=== PATIENT | female | born 1995 | race Caucasian/White ===

== ENCOUNTER 2017-02-02 18:50 | Inpatient (IN) | payer BC ==
[~2017-02-02] VITALS: Ht 170.2 cm; Wt 64.3 kg
[2017-02-02] MEDS ORDERED: LORAZEPAM 2 MG/ML 1 ML VIAL IV STA (19:53)
[2017-02-02] MEDS ORDERED: LORAZEPAM 2 MG/ML 1 ML VIAL ONE (19:55)
[2017-02-02] MEDS ORDERED: ONDANSETRON INJ 2 MG/ML 2 ML VIAL IV STA (19:56)
[2017-02-02] MEDS ORDERED: OXYC-57 PO (20:08)
[2017-02-02] MEDS ORDERED: BCPILLS PO (20:09)
[2017-02-02 20:11] LABS: BASO % 0.5 %; BASO ABS # 0.03 K/uL (0-0.2); COMPLETE YES; EOS % 7.4 %; HEMATOCRIT 39.5 % (37-47); IG% 0.2 %; LYMPH % 35.4 %; LYMPH ABS # 2.26 K/uL (1.2-3.4); MEAN CELL VOLUME 87.4 fL (80-100); MEAN CORPUSCULAR HEMOGLOBIN 29.4 pg (25-34); MEAN CORPUSCULAR HGB CONC 33.7 g/dl (32-36); MEAN PLATELET VOLUME 11.9 fL (7.4-10.4); MONO % 9.6 %; NEUT % 46.9 %; PLATELET COUNT 320 K/uL (130-400); RED BLOOD COUNT 4.52 M/uL (4.2-5.4); WHITE BLOOD COUNT 6.38 K/uL (4.8-10.8)
[2017-02-02] MEDS ORDERED: SODIUM CHLORIDE 0.9% 1000ML 1,000 ML IV STA (20:12)
[2017-02-02 20:18] LABS: BUN/CREATININE RATIO 10.2 (10-20); CALCIUM 9.2 mg/dl (8.5-10.1); CREATININE 0.84 mg/dl (0.60-1.20); POTASSIUM 3.6 mmol/L (3.5-5.1)
[2017-02-02] MEDS ORDERED: MoRPHine SULFATE 4 MG/ML 1 ML CARP\\VIAL ONE (20:19)
[2017-02-02 20:22] LABS: PARTIAL THROMBOPLASTIN RATIO 1.2; PROTHROMBIN TIME (PATIENT) 10.4 SECONDS (9.0-12.0)
[2017-02-02] MEDS ORDERED: SILVER NITR/POTASSIUM NITRATE APPLICATOR ONE ×5 (20:32→21:24)
[2017-02-02] MEDS ORDERED: BENZOCAIN/TETRACA/BUTAM SPRAY 200 APPLN/20 GM SPRY ONE ×3 (20:34→20:36)
[2017-02-02] MEDS ORDERED: MoRPHine SULFATE 4 MG/ML 1 ML CARP\\VIAL IV STA (20:50)
[2017-02-02] MEDS ORDERED: LIDOCAINE/EPINEPHRINE 1% 20 ML VIAL ONE ×2 (21:49→23:24)
[2017-02-02] MEDS ORDERED: ONDANSETRON INJ 2 MG/ML 2 ML VIAL IV PRN (22:00)
[2017-02-02] MEDS ORDERED: ATROPINE SULFATE 0.1 MG/ML 5ML SYR IV PRN (22:00)
[2017-02-02] MEDS ORDERED: EpHEDrine SULFATE INJ 50 MG/ML AMP IV PRN (22:00)
[2017-02-02] MEDS ORDERED: FENTANYL CITRATE INJ 50 MCG/1 ML 2 ML VIAL IV PRN (22:00)
[2017-02-02] MEDS ORDERED: PROMETHAZINE HCL INJ 6.25 MG in SODIUM CHLORIDE 0.9% 50ML 50 ML IV PRN (22:00)
[2017-02-02] MEDS ORDERED: PROPOFOL IV EMULSION 10 MG/ML 20 ML VIAL IV ONE ×2 (22:05→23:03)
[2017-02-02] MEDS ORDERED: FENTANYL CITRATE INJ 50 MCG/1 ML 2 ML VIAL ONE (22:05)
[2017-02-02] MEDS ORDERED: SUCCINYLCHOLINE CHLORIDE 20 MG/ML 10 ML VIAL IV ONE (22:05)
[2017-02-02] MEDS ORDERED: LIDOCAINE HCL 2% 2 ML VIAL (20MG/ML) ONE (22:05)
[2017-02-02] MEDS ORDERED: ONDANSETRON INJ 2 MG/ML 2 ML VIAL ONE (22:06)
[2017-02-02] MEDS ORDERED: DEXAMETHASONE SOD INJ 4 MG/ML VIAL ONE (22:06)
[2017-02-02] MEDS ORDERED: OXYMETAZOLINE HCL 0.05% NA SPR 15 ML BTL ONE (22:51)
--- NOTE | 2017-02-02 23:06 | ENT CONSULTATION ---
DATE OF CONSULTATION: 02/02/2017 INDICATION: Post-tonsillectomy hemorrhage. PERSON REQUESTING CONSULTATION: Kaitlin Cooper PA-C HISTORY OF PRESENT ILLNESS: This is a 21-year-old woman, who underwent tonsillectomy 1 week ago at [facility]. She did well until earlier today, when she experienced some post-tonsillectomy bleeding. She had been taken Percocet for pain and denied any use of Advil or aspirin. She presented to the Emergency Department in the early evening of 02/02/17, and I was called about 8:00 PM. I arrived in the Emergency Department about 8:15 PM. PAST MEDICAL HISTORY: Medical history includes asthma. Surgery includes tonsillectomy. ALLERGIES: SHE HAS AN ALLERGY TO CLINDAMYCIN. PHYSICAL EXAMINATION: I examined her in the Emergency Department, and her bleeding was occurring diffusely from both tonsillar fossae. It was much more extensive on the left than the right. Although the oozing involved the superior and inferior aspects of both tonsillar fossae, it was most brisk from the inferior portion of her tonsillar fossa. I spent about an hour, trying to control bleeding, using gargles with iced saline and hydrogen peroxide, which was then suctioned away along with clot to better localize the sites of bleeding. Using a surgical headlight wiht surgical loupes, silver nitrate was applied to the bleeding sites. Unfortunately, I was unable to stop the bleeding, and given the inability to control the hemorrhage in the Emergency Department, she was taken to the operating room for control of post-tonsillectomy hemorrhage under general anesthesia. I provided a full informed consent myself and answered her questions. AWILDA
--- NOTE | 2017-02-02 23:50 | EMERGENCY ROOM VISIT NOTE ---
History First contact with patient: 19:04 Chief Complaint: THROAT PAIN/INJURY Stated Complaint: THROAT BLEEDING POST TONSILECTOMY History of Present Illness The patient is a 21 year old female who presents to the Emergency Room with complaints of bleeding 1 week status post tonsillectomy. The patient states that she had a tonsillectomy performed 1 week ago at [facility] due to chronic infections and breathing difficulties. She states that she has had some pain but has otherwise been healing well. This morning, approximately 8 hours prior to arrival, she developed a small amount of bleeding. She states the bleeding has increased in the past one hour, prompting her to come here. She denies any history or family history of bleeding or clotting disorders. She denies any difficulty breathing. She denies any lightheadedness, syncope or dizziness. Review of Systems A complete 10 point review of systems was reviewed with the patient with pertinent positives and negatives as per history of present illness. All else were negative. Past Medical/Surgical History Medical Problems: (1) Post tonsillectomy secondary hemorrhage Social History Smoking Status: Never Smoker Current/Historical Medications Scheduled Control Pills ( Control Pills), 1 TAB PO HS Scheduled PRN Oxycodone/Acetaminophen 5MG/325MG (Percocet 5MG/325MG), 2 TABS PO Q4H PRN for Pain Allergies Coded Allergies: Clindamycin (Unverified Allergy, Unknown, SWELLING, 02/02/17) Erythromycin (Unverified Allergy, Unknown, SWELLING, 02/02/17) Physical Exam Vital Signs Date Time Temp Pulse Resp B/P (MAP) Pulse Ox O2 Delivery O2 Flow Rate FiO2 02/02/17 22:37 36.6 104 16 124/80 98 02/02/17 21:53 104 16 124/80 98 Room Air 02/02/17 20:17 98 Room Air 02/02/17 20:14 107 16 125/82 98 Room Air 02/02/17 20:06 101 02/02/17 19:57 116 16 141/107 97 Room Air 02/02/17 19:40 97 Room Air 02/02/17 19:00 36.6 98 18 127/83 97 Room Air Pain Rating (0-10): 4.0 Physical Exam VITALS: Vitals are noted on the nurse's note and reviewed by myself. Vital signs stable. GENERAL: This is a 21-year-old female, tearful, anxious appearing, spitting blood into an emesis bag, well-developed well-nourished. MOUTH: There are whitish scabs over bilateral tonsillar pillars. There is blood actively oozing from the left tonsillar pillar. HEART: Regular rate and rhythm without murmurs gallops or rubs. LUNGS: Clear to auscultation bilaterally without wheezes, rales or rhonchi. NEURO: Patient was alert and oriented to person place and time. Medical Decision & Procedures Laboratory Results 02/02/17 19:15 Red Blood Count 4.52, Mean Corpuscular Volume 87.4, Mean Corpuscular Hemoglobin 29.4, Mean Corpuscular Hemoglobin Concent 33.7, Mean Platelet Volume 11.9, Neutrophils (%) (Auto) 46.9, Lymphocytes (%) (Auto) 35.4, Monocytes (%) (Auto) 9.6, Eosinophils (%) (Auto) 7.4, Basophils (%) (Auto) 0.5, Neutrophils # (Auto) 3.00, Lymphocytes # (Auto) 2.26, Monocytes # (Auto) 0.61, Eosinophils # (Auto) 0.47, Basophils # (Auto) 0.03 02/02/17 19:15 Test 02/02/17 19:15 White Blood Count 6.38 K/uL (4.8-10.8) Red Blood Count 4.52 M/uL (4.2-5.4) Hemoglobin 13.3 g/dL (12.0-16.0) Hematocrit 39.5 % (37-47) Mean Corpuscular Volume 87.4 fL (80-100) Mean Corpuscular Hemoglobin 29.4 pg (25-34) Mean Corpuscular Hemoglobin Concent 33.7 g/dl (32-36) Platelet Count 320 K/uL (130-400) Mean Platelet Volume 11.9 fL (7.4-10.4) Neutrophils (%) (Auto) 46.9 % Lymphocytes (%) (Auto) 35.4 % Monocytes (%) (Auto) 9.6 % Eosinophils (%) (Auto) 7.4 % Basophils (%) (Auto) 0.5 % Neutrophils # (Auto) 3.00 K/uL (1.4-6.5) Lymphocytes # (Auto) 2.26 K/uL (1.2-3.4) Monocytes # (Auto) 0.61 K/uL (0.11-0.59) Eosinophils # (Auto) 0.47 K/uL (0-0.5) Basophils # (Auto) 0.03 K/uL (0-0.2) RDW Standard Deviation 43.6 fL (36.4-46.3) RDW Coefficient of Variation 13.6 % (11.5-14.5) Immature Granulocyte % (Auto) 0.2 % Immature Granulocyte # (Auto) 0.01 K/uL (0.00-0.02) Prothrombin Time 10.4 SECONDS (9.0-12.0) Prothromb Time International Ratio 1.0 (0.9-1.1) Activated Partial Thromboplast Time 30.3 SECONDS (21.0-31.0) Partial Thromboplastin Ratio 1.2 Anion Gap 6.0 mmol/L (3-11) Est Creatinine Clear Calc Drug Dose 102.4 ml/min Estimated GFR () 116.0 Estimated GFR (Non- 100.1 BUN/Creatinine Ratio 10.2 (10-20) Calcium Level 9.2 mg/dl (8.5-10.1) Medications Administered Medications (Trade) Dose Ordered Sig/Keith Route Start Time Stop Time Status Last Admin Dose Admin Lorazepam (Ativan Inj) 0.5 mg NOW STAT IV 02/02/17 19:53 02/02/17 19:55 DC 02/02/17 19:57 0.5 MG Ondansetron HCl (Zofran Inj) 4 mg NOW STAT IV 02/02/17 19:56 02/02/17 19:58 DC 02/02/17 20:02 4 MG Sodium Chloride 1,000 ml @ 999 mls/hr Q1H1M STAT IV 02/02/17 20:12 02/02/17 21:12 DC 02/02/17 20:12 999 MLS/HR Morphine Sulfate (MoRPHine SULFATE INJ) 4 mg STK-MED ONCE .ROUTE 02/02/17 20:19 02/02/17 20:20 DC 02/02/17 20:20 4 MG Oxymetazoline HCl (Afrin 0.05% Nasal [place]) 75 sprays STK-MED ONCE .ROUTE 02/02/17 22:51 6/13/17 22:52 DC 02/02/17 22:51 75 SPRAYS ED Course The patient was evaluated as above. Labs were drawn and IV access was obtained. She was given a 1 L normal saline bolus. Patient was given iced saline and hydrogen peroxide in a 5:1 solution and gargle this for approximately 5 minutes. Her bleeding seemed to slow slightly, but did continue. Dr. Contreras of ENT was consulted. He will evaluate the patient in the emergency department. The patient requested that we update the parents. I called both her mother and father and updated them on the patient's condition. I was asked by the nurse to return to the patient's room, as her bleeding has increased. The patient is still bleeding a moderate amount from the left tonsillar pillar. She was asked to continue to gargle the iced saline solution. She was medicated with 4 mg Zofran, as she was gagging and 0.[address] anxiety. [address] Contreras evaluated the patient. She was given a dose of IV morphine at his request. He attempted to stop the bleeding but unfortunately was unable to. The patient was taken to the OR for surgical management. Dr. Contreras called and asked that I speak with the hospitalist service regarding the patient. I spoke with Dr. Street, who agreed to evaluate the patient as well. Medical Decision Differential diagnosis includes post-tonsillectomy hemorrhage, infection, bleeding disorder, among others. The patient is a 21-year-old female who presents today complaining of bleeding one week status post tonsillectomy. On evaluation, the patient has a moderate amount of blood oozing from the left tonsillar pillar. An attempt was made to stop the bleeding with iced saline and hydrogen peroxide. This was not successful and ENT was consulted. Please see Dr. Contreras's dictation for further details. He did attempt to cauterize the tonsillar pillars in the emergency department but was unable. The patient was subsequently taken to the OR for surgical management. The [facility] hospitalist service was consulted by myself and Dr. Contreras's request to evaluate the patient as well. She remained hemodynamically stable under my care in the emergency department. Medication reconciliation: I attest that I have personally reviewed the patient 's current medication list. Blood pressure screening: Patient was found to have normal blood pressure on screening and does not require follow-up. Impression Primary Impression: Post-tonsillectomy hemorrhage Departure Information Referrals Krystle Abdul MD (PCP) Patient Instructions My [facility]
[2017-02-03] VITALS (15 sets, daily range): BP systolic 100–139; BP diastolic 52–113; PULSE 70–141; TEMP 36.2–37.5; O2SAT 95–100; Ht 170.2 cm; Wt 64.3 kg
[2017-02-03] MEDS ORDERED: ACETAMINOPHEN IV 1,000 MG in EMPTY BAG 0 ML IV SCH
[2017-02-03] MEDS: SODIUM CHLORIDE 0.9% 1000ML 1,000 ML IV SCH ×3 (00:01→19:35)
[2017-02-03] MEDS ORDERED: LORAZEPAM 2 MG/ML 1 ML VIAL ONE (00:09)
[2017-02-03] MEDS ORDERED: NURSING DECISION MEDICATION ORDER ONE (00:15)
[2017-02-03] MEDS ORDERED: ACETAMINOPHEN IV 1000MG/100ML IV STA (00:27)
[2017-02-03] MEDS ORDERED: LORAZEPAM 2 MG/ML 1 ML VIAL IV STA (00:29)
--- NOTE | 2017-02-03 00:31 | Anesthesiology Progress Note ---
Anesthesia Post Op Note Date & Time Feb 03, 2017 at 00:18 Vital Signs Pain Intensity: 8.0 Vital Signs Past 12 Hours Date Time Temp Pulse Resp B/P (MAP) Pulse Ox O2 Delivery O2 Flow Rate FiO2 02/02/17 22:37 36.6 104 16 124/80 98 02/02/17 21:53 104 16 124/80 98 Room Air 02/02/17 20:17 98 Room Air 02/02/17 20:14 107 16 125/82 98 Room Air 02/02/17 20:06 101 02/02/17 19:57 116 16 141/107 97 Room Air 02/02/17 19:40 97 Room Air 02/02/17 19:00 36.6 98 18 127/83 97 Room Air Notes Mental Status: alert / awake / arousable, participated in evaluation Pt Amnestic to Procedure: Yes Nausea / Vomiting: adequately controlled Pain: adequately controlled Airway Patency, RR, SpO2: stable & adequate BP & HR: stable & adequate Hydration State: stable & adequate Anesthetic Complications: no major complications apparent Airway management note: Patient well preoxygenated with 2 yankauer suctions available at head of bed. RSI with performed by myself and gentle laryngoscopy with Mil3 blade revealed a recently bled L tonsillar bed, clear cords, and no significant blood in posterior pharynx. ETCO2 and bilateral breath sounds were confirmed. ETT was taped to oscar 22cm at lip for surgeon and bed was turned 90 degrees. During positioning of head and placement of tongue blade, the ETT became dislodged and blood was noted in throat and ETT. As surgeon already at the head of bed, the throat was suctioned, irrigated, and the patient was bag mask ventilated and reintubated by the surgeon. She had no prolonged desaturation and end tidal CO2 and bilateral breath sounds were confirmed. The case proceeded uneventfully and the patient was extubated on emergence. She did have some emesis of clotted blood in recovery which was followed closely by the surgeon and did resolve. Given the possibility of rebleed requiring reexploration or airway management, the decision was made between myself and the surgeon to observe her in the ICU overnight. I have spoken to the computational physicist and the hospitalist who will assume care of the patient.
--- NOTE | 2017-02-03 00:48 | [facility] Post Operative Brief Note ---
Immediate Operative Summary Operative Date Feb 03, 2017. Pre-Operative Diagnosis Post-tonsillectomy hemorrhage Post-Operative Diagnosis Post-tonsillectomy hemorrhage Procedure(s) Performed Control of Post-Tonsillectomy Hemorrhage Surgeon Dr. Bryan Contreras Header Machine Operator Surgeon(s) None Estimated Blood Loss 75ml Findings Diffuse oozing from both tonsillar fossa. Fluids (cc crystalloids) 1200 ml Specimens No Specimens Anesthesia General via ETT Complication(s) None Disposition Surgical ICU
[2017-02-03] MEDS ORDERED: OXYMETAZOLINE HCL 0.05% NA SPR 15 ML BTL ONE ×2 (01:12→03:08)
[2017-02-03] MEDS ORDERED: COLLAGEN HEMOSTAT ABSORBABLE ONE (01:12)
[2017-02-03 01:16] LABS: HEMATOCRIT 32.9 % (37-47)
[2017-02-03] MEDS ORDERED: FENTANYL CITRATE INJ 50 MCG/1 ML 2 ML VIAL ONE (01:17)
[2017-02-03] MEDS ORDERED: PROPOFOL IV EMULSION 10 MG/ML 100 ML VIAL IV ONE (01:29)
--- NOTE | 2017-02-03 01:45 | EMERGENCY ROOM VISIT NOTE ---
ED Visit Note First contact with patient: 19:04 I have personally evaluated this patient examined her and reviewed the pertinent labs and data. I have discussed the case with Kaitlin Batista, the physician assisted living assistant and agree with the plan. Please refer to the PA note. This patient comes in after having post tonsillar bleed about a week after her tonsils were removed. Initially she has small ooze. As per protocol we did have her use cold salt water established an IV and hydrated her. Blood work was obtained. She started bleeding more briskly and we consulted the your nose and throat in the meantime we did type and cross her for blood . she was given Ativan as she was anxious and Zofran for nausea. Dr. Cleaning did promptly come in and see her and is going to take her to the operating room for controlling of her bleeding.
[2017-02-03 01:59] LABS: BUN/CREATININE RATIO 17.6 (10-20); CALCIUM 7.9 mg/dl (8.5-10.1); CREATININE 0.74 mg/dl (0.60-1.20)
[2017-02-03] MEDS ORDERED: PROPOFOL IV EMULSION 10 MG/ML 100 ML VIAL IV PRN (02:00)
[2017-02-03] MEDS ORDERED: NURSING VERBAL MED ORDER ONE (02:00)
[2017-02-03] MEDS ORDERED: GELATIN SPONGE SZ 100 ONE (02:25)
[2017-02-03] MEDS ORDERED: TISSEEL FIBRIN SEALANT 4ML TOP ONE (02:27)
[2017-02-03] MEDS ORDERED: SUCCINYLCHOLINE CHLORIDE 20 MG/ML 10 ML VIAL IV ONE (02:47)
[2017-02-03] MEDS ORDERED: LIDOCAINE HCL 2% 2 ML VIAL (20MG/ML) ONE ×2 (02:47)
[2017-02-03] MEDS ORDERED: PROPOFOL IV EMULSION 10 MG/ML 20 ML VIAL IV ONE (02:47)
--- NOTE | 2017-02-03 03:23 | Anesthesiology Progress Note ---
Anesthesia Post Op Note Date & Time Feb 03, 2017 at 03:22 Vital Signs Pain Intensity: 7.0 Vital Signs Past 12 Hours Date Time Temp Pulse Resp B/P (MAP) Pulse Ox O2 Delivery O2 Flow Rate FiO2 02/03/17 03:09 40 02/03/17 01:15 36.5 141 20 133/91 (105) 96 Room Air 02/03/17 01:00 36.5 141 20 139/113 (122) 96 Room Air 02/03/17 01:00 36.5 107 20 125/73 96 Room Air 02/03/17 00:30 107 20 125/73 96 02/03/17 00:20 111 22 126/77 97 02/03/17 00:15 108 22 131/90 96 02/03/17 00:10 114 20 133/89 99 02/03/17 00:05 123 20 137/91 99 02/03/17 00:01 142 20 142/89 98 02/02/17 23:55 141 26 140/92 96 02/02/17 23:44 147 24 162/111 100 02/02/17 22:37 36.6 104 16 124/80 98 02/02/17 21:53 104 16 124/80 98 Room Air 02/02/17 20:17 98 Room Air 02/02/17 20:14 107 16 125/82 98 Room Air 02/02/17 20:06 101 02/02/17 19:57 116 16 141/107 97 Room Air 02/02/17 19:40 97 Room Air 02/02/17 19:00 36.6 98 18 127/83 97 Room Air Notes Mental Status: alert / awake / arousable, participated in evaluation Pt Amnestic to Procedure: Yes Nausea / Vomiting: adequately controlled Pain: adequately controlled Airway Patency, RR, SpO2: stable & adequate BP & HR: stable & adequate Hydration State: stable & adequate Anesthetic Complications: no major complications apparent Patient remains sedated and intubated and pharynx packed as planned preoperatively. Initial plan for vent orders and sedation is underway. Hospitalist team is aware of plan.
[2017-02-03] MEDS ORDERED: ATROPINE SULFATE 0.1 MG/ML 5ML SYR IV PRN (03:30)
[2017-02-03] MEDS ORDERED: EpHEDrine SULFATE INJ 50 MG/ML AMP IV PRN (03:30)
[2017-02-03 03:45] LABS: COMPLETE YES; EOS % 0.1 %; HEMATOCRIT 38.2 % (37-47); IG% 0.2 %; LYMPH % 5.9 %; LYMPH ABS # 0.63 K/uL (1.2-3.4); MEAN CELL VOLUME 86.6 fL (80-100); MEAN CORPUSCULAR HEMOGLOBIN 28.8 pg (25-34); MEAN CORPUSCULAR HGB CONC 33.2 g/dl (32-36); MEAN PLATELET VOLUME 11.2 fL (7.4-10.4); MONO % 0.4 %; NEUT % 93.4 %; PLATELET COUNT 278 K/uL (130-400); RED BLOOD COUNT 4.41 M/uL (4.2-5.4); WHITE BLOOD COUNT 10.76 K/uL (4.8-10.8)
[2017-02-03 03:53] LABS: PROTHROMBIN TIME (PATIENT) 10.8 SECONDS (9.0-12.0)
[2017-02-03 04:05] LABS: PFT COL EPI 120 SECONDS (80-184)
--- NOTE | 2017-02-03 05:28 | OPERATIVE REPORT ---
DATE OF OPERATION: 02/02/2017 ADDENDUM: Please include this information in the operative note I just completed a few minutes ago: BLOOD LOSS: 450 mL. IV FLUIDS: 1200 mL of crystalloid. I attest to the content of the Intraoperative Record and any orders documented therein. Any exceptions are noted below. NGHIAD
--- NOTE | 2017-02-03 05:45 | History and Physical ---
History & Physical Date & Time of Service: Feb 03, 2017 at 05:36 Chief Complaint: Post Tonsillectomy Secondary Hemorrhage Primary Care Physician: Krystle Abdul MD History of Present Illness Source: patient 21-year-old female presented to the ER with complaints of bleeding from tonsillectomy site which started today. Tonsillectomy was performed about a week ago at [facility] and she did well postoperatively until this evening. Denied using Advil or aspirin. Denied any bleeding or clotting disorders, denies difficulty breathing, lightheadedness or dizziness or syncope Social History Smoking Status: Never Smoker Allergies Coded Allergies: Clindamycin (Unverified Allergy, Unknown, SWELLING, 02/02/17) Erythromycin (Unverified Allergy, Unknown, SWELLING, 02/02/17) Home Medications Scheduled Control Pills ( Control Pills), 1 TAB PO HS Scheduled PRN Oxycodone/Acetaminophen 5MG/325MG (Percocet 5MG/325MG), 2 TABLETS PO Q4H PRN for Pain Review of Systems Constitutional: No fever, No chills Eyes: No worsening of vision ENT: + problem reported (bleeding from tonsillectomy site), No hearing loss Respiratory: No cough, No shortness of breath Cardiovascular: No chest pain Abdomen: No pain, No nausea, No diarrhea Genitourinary - Female: No dysuria Psychiatric: + anxiety, No depression symptoms Endocrine: No fatigue Physical Exam Vital Signs Date Time Temp Pulse Resp B/P (MAP) Pulse Ox O2 Delivery O2 Flow Rate FiO2 02/03/17 04:52 30 02/03/17 04:00 36.5 93 20 125/85 (98) 100 Room Air 02/03/17 03:45 100 Room Air 30 02/03/17 03:45 30 02/03/17 03:45 36.2 97 18 126/85 (99) 100 Room Air 02/03/17 03:40 36.2 95 18 127/86 (100) 95 Room Air 02/03/17 03:35 36 90 130/90 100 Mechanical Ventilator 30 02/03/17 03:30 90 121/81 100 Mechanical Ventilator 02/03/17 03:25 76 113/79 100 Mechanical Ventilator 30 02/03/17 03:20 88 114/79 100 Mechanical Ventilator 30 02/03/17 03:15 101 116/80 100 Mechanical Ventilator 30 02/03/17 03:10 74 128/92 100 Mechanical Ventilator 30 02/03/17 03:09 40 02/03/17 03:03 36 105/66 (79) 100 Mechanical Ventilator 30 02/03/17 01:15 36.5 141 20 133/91 (105) 96 Room Air 02/03/17 01:00 36.5 141 20 139/113 (122) 96 Room Air 02/03/17 01:00 36.5 107 20 125/73 96 Room Air 02/03/17 00:30 107 20 125/73 96 02/03/17 00:20 111 22 126/77 97 02/03/17 00:15 108 22 131/90 96 02/03/17 00:10 114 20 133/89 99 02/03/17 00:05 123 20 137/91 99 02/03/17 00:01 142 20 142/89 98 02/02/17 23:55 141 26 140/92 96 02/02/17 23:44 147 24 162/111 100 02/02/17 22:37 36.6 104 16 124/80 98 02/02/17 21:53 104 16 124/80 98 Room Air 02/02/17 20:17 98 Room Air 02/02/17 20:14 107 16 125/82 98 Room Air 02/02/17 20:06 101 02/02/17 19:57 116 16 141/107 97 Room Air 02/02/17 19:40 97 Room Air 02/02/17 19:00 36.6 98 18 127/83 97 Room Air General Appearance: + mild distress Head: normocephalic ENT: + pertinent finding (whitish-appearing scabs on the tonsillar pillars with active bleeding especially from left) Neck: supple Respiratory/Chest: chest non-tender, lungs clear, normal breath sounds Cardiovascular: regular rate, rhythm Abdomen/GI: normal bowel sounds, non tender, soft Extremities/Musculoskelatal: no pedal edema Neurologic/Psych: alert, oriented x 3, + pertinent finding (anxious) Skin: normal color Diagnostics Laboratory Results Results Past 24 Hours Test 02/02/17 19:15 02/03/17 01:05 02/03/17 03:40 Range/Units White Blood Count 6.38 10.76 4.8-10.8 K/uL Red Blood Count 4.52 4.41 4.2-5.4 M/uL Hemoglobin 13.3 10.5 12.7 12.0-16.0 g/dL Hematocrit 39.5 32.9 38.2 37-47 % Mean Corpuscular Volume 87.4 86.6 80-100 fL Mean Corpuscular Hemoglobin 29.4 28.8 25-34 pg Mean Corpuscular Hemoglobin Concent 33.7 33.2 32-36 g/dl Platelet Count 320 278 130-400 K/uL Mean Platelet Volume 11.9 11.2 7.4-10.4 fL Neutrophils (%) (Auto) 46.9 93.4 % Lymphocytes (%) (Auto) 35.4 5.9 % Monocytes (%) (Auto) 9.6 0.4 % Eosinophils (%) (Auto) 7.4 0.1 % Basophils (%) (Auto) 0.5 0.0 % Neutrophils # (Auto) 3.00 10.06 1.4-6.5 K/uL Lymphocytes # (Auto) 2.26 0.63 1.2-3.4 K/uL Monocytes # (Auto) 0.61 0.04 0.11-0.59 K/uL Eosinophils # (Auto) 0.47 0.01 0-0.5 K/uL Basophils # (Auto) 0.03 0.00 0-0.2 K/uL RDW Standard Deviation 43.6 42.2 36.4-46.3 fL RDW Coefficient of Variation 13.6 13.1 11.5-14.5 % Immature Granulocyte % (Auto) 0.2 0.2 % Immature Granulocyte # (Auto) 0.01 0.02 0.00-0.02 K/uL Prothrombin Time 10.4 10.8 9.0-12.0 SECONDS Prothromb Time International Ratio 1.0 1.0 0.9-1.1 Activated Partial Thromboplast Time 30.3 21.0-31.0 SECONDS Partial Thromboplastin Ratio 1.2 Sodium Level 136 140 136-145 mmol/L Potassium Level 3.6 4.0 3.5-5.1 mmol/L Chloride Level 99 105 98-107 mmol/L Carbon Dioxide Level 31 24 21-32 mmol/L Anion Gap 6.0 11.0 3-11 mmol/L Blood Urea Nitrogen 9 13 7-18 mg/dl Creatinine 0.84 0.74 0.60-1.20 mg/dl Est Creatinine Clear Calc Drug Dose 102.4 116.2 ml/min Estimated GFR () 116.0 135.2 Estimated GFR (Non- 100.1 116.6 BUN/Creatinine Ratio 10.2 17.6 10-20 Random Glucose 83 146 70-99 mg/dl Calcium Level 9.2 7.9 8.5-10.1 mg/dl Platelet Func Collagen/Epinephrine 120 80-184 SECONDS Impression Assessment and Plan 21-year-old female status post tonsillectomy about a week ago at [facility] presented with bleeding that started this morning. ENT was consulted by ER and after several attempts to control bleeding in the ER she was taken to the OR for controlling her bleeding. Post tonsillectomy secondary hemorrhage: - Patient taken to the OR by ENT after unsuccessful attempts to control bleeding in the ER - Continue IV fluids - Pain control with morphine - Monitor H&H DVT prophylaxis: SCDs Full code Disposition: To be transferred to ICU after procedure Advanced Directives Existing Living Will: No Existing Power of Product Development Scientist: No Resuscitation Status FULL RESUSCITATION VTE Prophylaxis VTE Risk Assessment Done? Y/N: Yes Risk Level: Moderate Given or contraindicated: SCD's Resident Tracking Resident Involvement: Resident Care Provided Care Provided: Adult Hospital Medicine Assessment and Plan Attending Addendum: I have physically seen and examined this patient, have directed their medical care, have supervised the medical residents activities, and agree with the H&P as noted above, with the following changes: NONE
[2017-02-03] MEDS: PROPOFOL IV EMULSION 10 MG/ML 100 ML VIAL IV PRN ×4 (06:12→19:34)
--- NOTE | 2017-02-03 07:53 | DIAGNOSTIC IMAGING REPORT ---
CHEST ONE VIEW PORTABLE HISTORY: ett placement COMPARISON: None. FINDINGS: The lungs are clear. Cardiac silhouette is normal in size. No pleural effusions. No pneumothorax. Endotracheal tube terminates 2.6 cm from the samm. IMPRESSION: The endotracheal tube terminates 2.6 cm from the samm. Electronically signed by: Guru Daniels M.D. 02/03/2017 7:51 AM Dictated Date/Time: 02/03/2017 7:49 AM
[2017-02-03] MEDS ORDERED: SODIUM CHLORIDE 0.9% 1000ML 1,000 ML IV ONE (08:30)
[2017-02-03] MEDS: MoRPHine SULFATE 2 MG/ML CARP IV PRN ×4 (08:32→19:35)
--- NOTE | 2017-02-03 10:01 | OPERATIVE REPORT ---
DATE OF OPERATION: 02/02/2017 PROCEDURE: Control of post tonsillectomy hemorrhage. SURGEON: Bryan Contreras MD ANESTHESIOLOGIST: Nahid Chang MD TECHNIQUE OF ANESTHESIA: General via endotracheal tube. SUMMARY OF FINDINGS: Diffuse oozing in the tonsillar fossae bilaterally. PREOPERATIVE DIAGNOSIS: Post tonsillectomy hemorrhage. POSTOPERATIVE DIAGNOSIS: Post tonsillectomy hemorrhage. INDICATIONS FOR PROCEDURE: This is a 21-year-old woman, who underwent tonsillectomy at [facility] one week ago. She unfortunately had some postoperative bleeding, which took her to the Emergency Department on February 02. I first saw her at about 08:15 and was unable to stop her bleeding in the Emergency Department after one hour. Therefore, I made a decision to take her to the operating room for control of post tonsillectomy hemorrhage under general anesthesia. Informed consent was provided by me directly to the patient including the indications, risks, benefits and alternatives to the proposed procedure. BLOOD LOSS: 75 mL. IV FLUIDS: 1200 mL of crystalloid. Sponge and needle counts were correct at the end of the case. DESCRIPTION OF PROCEDURE: The patient had rapid sequence induction with uneventful intubation on the first attempt by the anesthesiologist, Dr. Nahid Chang. After this, the table was turned [address] Chang. During the turning of the table, the endotracheal tube became dislodged, I removed it, suctioned the oropharynx and reintubated her without difficulty. using a #3 Chandler Blade. Desaturation less than 90% occurred for less than 15 seconds, and went as low as 58%. Head drape was positioned and Binu-Sanchez mouth gag was inserted and suspended from the Fletcher stand. The tonsillar fossae were packed with tonsillar sponges soaked in 0.05% oxymetazoline. I then dealt with diffuse oozing from both tonsillar fossae using suction electrocautery. After getting both tonsillar fossae completely dry, I packed the fossae with Surgicel and oversewed the anterior and posterior pillars using running 3-0 Vicryl suture. There was no further oozing from the tonsillar fossae. The stomach was suctioned out using an 18-Mohawk nasogastric tube. After this, I copiously irrigated the oropharynx and waited for the patient to become light. When she started to raygoza, and there was still no bleeding, I removed the Binu-Sanchez mouth gag and no oral airway was placed. The patient was extubated and had good control of her airway. She was transported to recovery in no apparent distress. I decided that it was best for her to go to the intensive care unit and in the intensive care unit, she had a bit of bleeding and her blood pressure was elevated at around 160/110. Her blood pressure came down and there was no further oozing. I waited around about an hour after surgery in the intensive care unit to make sure there were no further problems. I attest to the content of the Intraoperative Record and any orders documented therein. Any exceptions are noted below. MTDD
--- NOTE | 2017-02-03 10:01 | OPERATIVE REPORT ---
DATE OF OPERATION: 02/02/2017 SURGEON: Dr. Contreras. ANESTHESIA: General via an endotracheal tube. OPERATION: Re-exploration of post-tonsillectomy hemorrhage. PREOPERATIVE DIAGNOSIS: Continued bleeding status post previous control of post-tonsillectomy hemorrhage. POSTOPERATIVE DIAGNOSIS: Same. SUMMARY OF FINDINGS: 1. After releasing the Vicryl sutures which had oversewn the anterior to the posterior tonsillar pillars and removing all Surgicel, there was no active bleeding seen in either tonsillar fossae. 2. There was no bleeding coming from any other site in the upper airway including the hypopharynx, tongue base, and nasopharynx. Those are the findings. INDICATIONS FOR THE PROCEDURE: 1. This is a 21-year-old woman who 7 days ago underwent tonsillectomy at [facility]. She presented to the Emergency Department at [facility] late this afternoon with post-tonsillectomy hemorrhage on day #7. After an hour in the Emergency Department, was unable to control the bleeding. Therefore, she underwent control in the operating room late in the night on the 02 of February. The patient had diffuse oozing from both tonsillar fossae and this was controlled with suction cautery and the tonsillar fossae were packed with Surgicel and oversewn with Vicryl. The patient was then taken to the ICU, and I stuck around for about an hour and a half. Just before leaving the hospital, the patient had an episode of emesis and there was about 450 mL of blood in the emesis. This was measured. Shortly before transporting her back to the operating room, she had another 350 mL of emesis for a total of 800 mL. Anyway that is the indication for the surgery. The blood loss for the second procedure was 450 mL aspirated from the stomach. The IV fluids were 1200 mL of crystalloid. DESCRIPTION OF PROCEDURE: The patient had an uneventful rapid sequence induction with intubation with no aspiration and this was done on the first attempt. After intubation, the table was turned 90 degrees away from the anesthesiologist, and the head was lowered in the Gertrude position. Head drape was placed. Binu-Sanchez mouth gag was inserted and suspended from the Fletcher stand. I irrigated the oropharynx and removed blood clots. I then removed the Vicryl sutures from the tonsillar pillars on both sides. I also removed with Surgicel and copiously irrigated the tonsillar fossa with saline and saline with hydrogen peroxide. There was no bleeding at any time from the tonsillar fossae. This was perplexing, so I made sure that I explored other possible causes of bleeding, I used a pediatric endoscope and examined her nose and nasopharynx, there was no site of bleeding. I also went down into the vallecula and there was no bleeding. I suctioned out the stomach and then irrigated the stomach with saline to make sure there was no active bleeding in the stomach and this was all after irrigating with saline there was no further blood aspirated from the stomach. However, there was about 450 mL of blood in the stomach. At this point, I had no active bleeding and the tonsillar fossae were open. Therefore, I applied 2 mL of Tisseel to each tonsillar fossa. After this, I applied Avitene to both tonsillar fossae and packed it against the Tisseel after this to hold everything in place. I shaped Gelfoam and pressed it deep in the tonsillar fossae bilaterally. I then waited another 5 minutes and there was no bleeding. I then took 2 vaginal packs and tied them together and soaked them in saline. I removed the tongue blade and there was still no bleeding and then I packed the oropharynx up against the Gelfoam very firmly using the saline soaked vaginal pack. The patient was transported to the surgical ICU about 20 minutes later and I followed up with the patient in the surgical ICU and there was no blood coming from the nose or the oropharynx and her endotracheal tube was in good position and she was ventilating well and the vaginal pack was in good position in the oropharynx. I explained to the nursing staff the importance of immediately removing the oropharyngeal packing in the event of inadvertent extubation. I will closely follow this patient. I attest to the content of the Intraoperative Record and any orders documented therein. Any exceptions are noted below. AWILDA
[2017-02-03] MEDS: PANTOprazole INJ 40 MG in SYRINGE 0 ML IV SCH (11:02)
[2017-02-03] MEDS ORDERED: TRANEXAMIC ACID INJ 1,000 MG in SODIUM CHLORIDE 0.9% 100ML 100 ML IV ONE (13:00)
--- NOTE | 2017-02-03 15:14 | Critical Care Consultation ---
Critical Care Consultation Date of Consultation: Feb 03, 2017. Attending Physician: Zak Street M.D. Reason for Consultation: Tonsillar bleeding, intubated to protect airway History of Present Illness This is a pleasant year old female who presented to the [facility] ED for 1 day of bleeding from her tonsillectomy night. At this time the patient is intubated and sedated so the majority of the history if obtained from prior records as well as outside records from [facility]. She had a tonsillectomy/adenoidectomy on 01/26/2017 for recurrent strep positive tonsillitis. She was noted to 4+ palatine tonsils and an adnoid pad. According to the operative notes, tonsils were excised and there was minimal bleeding at that time as an EBL of 1 cc was reported. She was discharged home in stable condition. In the ED she was promptly evaluated by the ENT physician. Who noted bleeding bilaterally from the tonsillar fossae. He made multiple non-surgical attempts to stop the bleeding including use of gargles, saline washing and hydrogen peroxide as well as surgical loupes and silver nitrate. Due to inability to control the bleeding site, she was brought down to the OR for attempt at surgical control of bleeding. The patient intubation prior to the procedure. In the OR after hemostasis was achieved via suction and cautery and the bleeding site was initially packed with surgicel, oversewn with Vicryl. At that time a blood loss of 75 ml was reported. Patient was extubated and transferred to the ICU. After approximately 2 hours, it was reported that she had 2 bouts of bloody emeses both 450 and 350 ml respectively, felt to be recurrence of bleeding. She was then take back to the OR by ENT where was re-intubated for re-exploration. Vicryl and surgicel were removed. After exploration without definitive source for bleed the fossae were both packed with Gelfoam and firmly applied in place with 2 vaginal packs. The patient was kept intubated and brought back to the ICU for post-operative care. Re-evaluate did not reveal any new bleeding. Regarding her past medical history, she did have her wisdom teeth recently removed, though there was no evidence of excessive post-operative bleeding. It is uncertain whether she has had any history of excessive no bleeds, rectal bleeding or menorrhagia. Past Medical/Surgical History Recurrent tonsillitis, strep Sleep-disordered breathing 2/2 enlarged tonsil/adenoids Family History Father, CVA Social History Smoking Status: Never Smoker Smokeless Tobacco Use: Unknown Alcohol Use: Unknown Drug Use: other (Unknown) Housing Status: lives with roommate Allergies Coded Allergies: Clindamycin (Unverified Allergy, Unknown, SWELLING, 02/02/17) Erythromycin (Unverified Allergy, Unknown, SWELLING, 02/02/17) Home Medications Scheduled Control Pills ( Control Pills), 1 TAB PO HS Scheduled PRN Oxycodone/Acetaminophen 5MG/325MG (Percocet 5MG/325MG), 2 TABS PO Q4H PRN for Pain Current Inpatient Medications Current Inpatient Medications Medications (Trade) Dose Ordered Sig/Keith Route Start Time Stop Time Status Last Admin Dose Admin Morphine Sulfate (MoRPHine SULFATE INJ) 2 mg Q3H PRN IV 02/02/17 23:00 02/16/17 22:59 02/03/17 11:06 2 MG Sodium Chloride 1,000 ml @ 125 mls/hr Q8H IV 02/03/17 00:30 03/05/17 00:29 02/03/17 11:06 125 MLS/HR Propofol (Diprivan Iv Emulsion 100ml Vial) 1 dose UD PRN IV 02/03/17 03:30 02/06/17 03:29 02/03/17 11:03 1 DOSE Pantoprazole Sodium 40 mg/ Syringe 10 ml @ 5 mls/min DAILY@11 IV 02/03/17 11:00 03/05/17 10:59 02/03/17 11:02 5 MLS/MIN Review of Systems A 10 point review of systems could not be obtained as patient is intubated and sedated Physical Exam Date Time Temp Pulse Resp B/P (MAP) Pulse Ox O2 Delivery O2 Flow Rate FiO2 02/03/17 14:00 36.6 70 12 111/71 (84) 100 Room Air 02/03/17 12:00 30 02/03/17 12:00 100 Mechanical Ventilator 30 02/03/17 12:00 37.5 73 12 108/69 (82) 100 Room Air 02/03/17 11:20 30 02/03/17 10:00 37.3 84 12 115/72 (86) 99 Room Air 02/03/17 08:00 Mechanical Ventilator 30 02/03/17 08:00 30 02/03/17 08:00 100 Mechanical Ventilator 30 02/03/17 08:00 37.1 87 12 116/77 (90) 99 Room Air 02/03/17 07:32 30 02/03/17 06:00 36.3 85 18 115/71 (86) 99 Room Air 02/03/17 05:00 36.6 89 18 115/75 (88) 100 Room Air 02/03/17 04:52 30 02/03/17 04:00 36.5 93 20 125/85 (98) 100 Room Air 02/03/17 03:45 100 Room Air 30 02/03/17 03:45 30 02/03/17 03:45 36.2 97 18 126/85 (99) 100 Room Air 02/03/17 03:40 36.2 95 18 127/86 (100) 95 Room Air 02/03/17 03:35 36 90 130/90 100 Mechanical Ventilator 30 02/03/17 03:30 90 121/81 100 Mechanical Ventilator 30 02/03/17 03:25 76 113/79 100 Mechanical Ventilator 30 02/03/17 03:20 88 114/79 100 Mechanical Ventilator 30 02/03/17 03:15 101 116/80 100 Mechanical Ventilator 30 02/03/17 03:10 74 128/92 100 Mechanical Ventilator 30 02/03/17 03:09 40 02/03/17 03:03 36 105/66 (79) 100 Mechanical Ventilator 30 02/03/17 01:15 36.5 141 20 133/91 (105) 96 Room Air 02/03/17 01:00 36.5 141 20 139/113 (122) 96 Room Air 02/03/17 01:00 36.5 107 20 125/73 96 Room Air 02/03/17 00:30 107 20 125/73 96 02/03/17 00:20 111 22 126/77 97 02/03/17 00:15 108 22 131/90 96 02/03/17 00:10 114 20 133/89 99 02/03/17 00:05 123 20 137/91 99 02/03/17 00:01 142 20 142/89 98 02/02/17 23:55 141 26 140/92 96 02/02/17 23:44 147 24 162/111 100 02/02/17 22:37 36.6 104 16 124/80 98 02/02/17 21:53 104 16 124/80 98 Room Air 02/02/17 20:17 98 Room Air 02/02/17 20:14 107 16 125/82 98 Room Air 02/02/17 20:06 101 02/02/17 19:57 116 16 141/107 97 Room Air 02/02/17 19:40 97 Room Air 02/02/17 19:00 36.6 98 18 127/83 97 Room Air General Appearance: well-appearing, other (RASS -4) Head: normocephalic, atraumatic ENT: normal nasal exam, other (oral cavity, packed, minimized manipulation to reduce risk of bleeding) Neck: no tenderness, trachea midline, no stridor, supple Respiratory: breath sounds normal, clear to auscultation Cardiovasular: normal S1S2, no murmur, no gallop Abdomen: non tender, normal bowel sounds, no rebound Back: other (unable to assess as patient is supine) Upper Extremities: no edema Lower Extremities: no edema Neuro: alert, oriented x 3, decreased LOC (2/2 propofol) Laboratory Results Last 24 Hours Test 02/02/17 19:15 02/03/17 01:05 02/03/17 03:40 02/03/17 11:49 White Blood Count 6.38 K/uL 10.76 K/uL Red Blood Count 4.52 M/uL 4.41 M/uL Hemoglobin 13.3 g/dL 10.5 g/dL 12.7 g/dL Hematocrit 39.5 % 32.9 % 38.2 % Mean Corpuscular Volume 87.4 fL 86.6 fL Mean Corpuscular Hemoglobin 29.4 pg 28.8 pg Mean Corpuscular Hemoglobin Concent 33.7 g/dl 33.2 g/dl Platelet Count 320 K/uL 278 K/uL Mean Platelet Volume 11.9 fL 11.2 fL Neutrophils (%) (Auto) 46.9 % 93.4 % Lymphocytes (%) (Auto) 35.4 % 5.9 % Monocytes (%) (Auto) 9.6 % 0.4 % Eosinophils (%) (Auto) 7.4 % 0.1 % Basophils (%) (Auto) 0.5 % 0.0 % Neutrophils # (Auto) 3.00 K/uL 10.06 K/uL Lymphocytes # (Auto) 2.26 K/uL 0.63 K/uL Monocytes # (Auto) 0.61 K/uL 0.04 K/uL Eosinophils # (Auto) 0.47 K/uL 0.01 K/uL Basophils # (Auto) 0.03 K/uL 0.00 K/uL RDW Standard Deviation 43.6 fL 42.2 fL RDW Coefficient of Variation 13.6 % 13.1 % Immature Granulocyte % (Auto) 0.2 % 0.2 % Immature Granulocyte # (Auto) 0.01 K/uL 0.02 K/uL Prothrombin Time 10.4 SECONDS 10.8 SECONDS Prothromb Time International Ratio 1.0 1.0 Activated Partial Thromboplast Time 30.3 SECONDS Partial Thromboplastin Ratio 1.2 Sodium Level 136 mmol/L 140 mmol/L Potassium Level 3.6 mmol/L 4.0 mmol/L Chloride Level 99 mmol/L 105 mmol/L Carbon Dioxide Level 31 mmol/L 24 mmol/L Anion Gap 6.0 mmol/L 11.0 mmol/L Blood Urea Nitrogen 9 mg/dl 13 mg/dl Creatinine 0.84 mg/dl 0.74 mg/dl Est Creatinine Clear Calc Drug Dose 102.4 ml/min 116.2 ml/min Estimated GFR () 116.0 135.2 Estimated GFR (Non- 100.1 116.6 BUN/Creatinine Ratio 10.2 17.6 Random Glucose 83 mg/dl 146 mg/dl Calcium Level 9.2 mg/dl 7.9 mg/dl Platelet Func Collagen/Epinephrine 120 SECONDS Bedside Glucose 111 mg/dl Test 02/03/17 12:09 Fibrinogen 326 mg/dl Diagnostic Results CHEST ONE VIEW PORTABLE HISTORY: ett placement COMPARISON: None. FINDINGS: The lungs are clear. Cardiac silhouette is normal in size. No pleural effusions. No pneumothorax. Endotracheal tube terminates 2.6 cm from the samm. IMPRESSION: The endotracheal tube terminates 2.6 cm from the samm. Electronically signed by: Guru Daniels M.D. 02/03/2017 7:51 AM Dictated Date/Time: 02/03/2017 7:49 AM Assessment & Plan (1) Post-tonsillectomy hemorrhage (2) Post tonsillectomy secondary hemorrhage (3) Recurrent streptococcal tonsillitis NEUROLOGICAL - GCS: 4 Eyes 2; Verbal 1; Motor 1 - Sedation: Propofol - RASS: -4 Continue sedation today and wean tomorrow - Pain regimen: Mprphine 2 mg q 3 hours CARDIOVASCULAR - BP: Maintaining MAPs 80-90 Goal MAP > 65 Not on vasopressor support - HR 70-80 - IV Fluids: NSS at 125 ml/hr - No history of cardiovascular disease RESPIRATORY - Ventilator settings: A/C / 12 / FiO2 30% / PEEP 5 / VT 500 ml Maintaining SpO2 99-100% (no hx of cardiopulmonary disease, goal sat rate > 94%) GASTROINTESTINAL - Diet: NPO as patient is intubated - GI Prophylaxis: Protonix 40 mg IV BID while fasting and intubated - Bowel regimen: Monitor for BM RENAL//ENDOCRINE - Fluid Balance Cumulatively + 3.3 L - 24-hour UO: 0.85 ml/kg/hr - Cr: 0.74 - Electrolytes: No gross electrolyte abnormalities, will continue to follow daily labs - IV Fluids: NSS at 125 ml/hr - BSG: POC glucose q6h while fasting HEMATOLOGY Acute Blood Loss 2/2 Post-tonsillectomy hemorrhage - Bleeding site is currently pack - ENT has removed packing from the oral cavity this afternoon, there is no gross evidence of continued bleeding - Patient was transfused with 2 units for blood loss; patient has presumed excellent cardiopulmonary reserve so a threshold to transfuse of Hb 7.0 is reasonable. - Given severity of bleeding, there is concern of possible coagulation disorder , though there is no history of severe bleeds at other points in her life - Coagulation studies grossly normal, though APTT may be on the higher end of the normal range - 1 g tranexamic acid given to patient - We will add the following labs: Von Willebrand's Panel Factor 9, and Factor 10 levels Fibrinogen level INFECTIOUS DISEASE - Afebrile, without leukocytosis of evidence of active infection - No indication for post-tonsillectomy antibiotics at this time. DVT PROPHYLAXIS - SCD - Pharmacological prophylaxis, contra-indicated due to recent bleeding LINES/IV ACCESS - Right AC 20 G - Left wrist 20 G CODE STATUS - Full Code DISPOSITION - Can re-assess need for OT/PT once patient is extubated and off sedatives - Will remain intubated today, with goal for sedation weaning, CPAP trial and extubation tomorrow. Resident Physician Supervision Note I was called about this patient by the anesthesia service last night after her first trip to the OR. She was extubated and being admitted to the ICU to monitor for further bleeding. She was stable at that time. I did not know she had been taken back to the OR and was being maintained on the ventilator until I arrived in the ICU this morning. She was intubated a total of 3 times last night and remains on the ventilator. I have spoken with her father who tells me she arrived home from a trip the day before her tonsillectomy at [facility] on January 26 and had been doing well at home. She returned to [place] in preparation for her classes at [employer] and her bleeding started yesterday. It worsened over the course of about 8 hours which is when she decided to go to the ED. She has not had any problems with bleeding in the past and there is no family history of bleeding disorder. She had her wisdom teeth removed without any issues. She remains intubated and sedated. I reviewed the VS, I/O, notes, meds, labs, imaging and other reports. I obtained and reviewed records from her hospitalization/surgery last week. I have examined her and my exam is consistent with that documented above. Her care was discussed on multidisciplinary rounds and with Dr. Johns today. The assessment and plan are well documented by him. Work up for Von Willibrand is in progress and hematology has been consulted. Tranexamic acid, 1g IV given before packing was removed this afternoon by Dr. Contreras. We will keep her sedated overnight on the ventilator, monitor for bleeding, reassess tomorrow AM with Dr. Contreras at the bedside and hopefully extubate at that time. Critical care time 60min. Documented By: Ivelisse Kang
--- NOTE | 2017-02-03 15:36 | Progress Note ---
Subjective Date of Service: Feb 03, 2017. Subjective pt intubated on propofol, cannot get ROS, father at bedside and updated'' I personally spoke to Dr Contreras ENT today about care plan for next 24 hours and also spoke to Dr Kang Problem List Medical Problems: (1) Post-tonsillectomy hemorrhage Status: Acute Objective Vital Signs Date Time Temp Pulse Resp B/P (MAP) Pulse Ox O2 Delivery O2 Flow Rate FiO2 02/03/17 07:32 30 02/03/17 06:00 36.3 85 18 115/71 (86) 99 Room Air 02/03/17 05:00 36.6 89 18 115/75 (88) 100 Room Air 02/03/17 04:52 30 02/03/17 04:00 36.5 93 20 125/85 (98) 100 Room Air 02/03/17 03:45 100 Room Air 30 02/03/17 03:45 30 02/03/17 03:45 36.2 97 18 126/85 (99) 100 Room Air 02/03/17 03:40 36.2 95 18 127/86 (100) 95 Room Air 02/03/17 03:35 36 90 130/90 100 Mechanical Ventilator 30 02/03/17 03:30 90 121/81 100 Mechanical Ventilator 30 02/03/17 03:25 76 113/79 100 Mechanical Ventilator 30 02/03/17 03:20 88 114/79 100 Mechanical Ventilator 30 02/03/17 03:15 101 116/80 100 Mechanical Ventilator 30 02/03/17 03:10 74 128/92 100 Mechanical Ventilator 30 02/03/17 03:09 40 02/03/17 03:03 36 105/66 (79) 100 Mechanical Ventilator 30 02/03/17 01:15 36.5 141 20 133/91 (105) 96 Room Air 02/03/17 01:00 36.5 141 20 139/113 (122) 96 Room Air 02/03/17 01:00 36.5 107 20 125/73 96 Room Air 02/03/17 00:30 107 20 125/73 96 02/03/17 00:20 111 22 126/77 97 02/03/17 00:15 108 22 131/90 96 02/03/17 00:10 114 20 133/89 99 02/03/17 00:05 123 20 137/91 99 02/03/17 00:01 142 20 142/89 98 02/02/17 23:55 141 26 140/92 96 02/02/17 23:44 147 24 162/111 100 02/02/17 22:37 36.6 104 16 124/80 98 02/02/17 21:53 104 16 124/80 98 Room Air 02/02/17 20:17 98 Room Air 02/02/17 20:14 107 16 125/82 98 Room Air 02/02/17 20:06 101 02/02/17 19:57 116 16 141/107 97 Room Air 02/02/17 19:40 97 Room Air 02/02/17 19:00 36.6 98 18 127/83 97 Room Air Physical Exam General Appearance: WD/WN, + mild distress Neck: trachea midline Respiratory/Chest: chest non-tender, lungs clear, normal breath sounds Cardiovascular: regular rate, rhythm, no murmur Abdomen: normal bowel sounds, non tender, soft Laboratory Results Last 24 Hours Test 02/02/17 19:15 02/03/17 01:05 02/03/17 03:40 White Blood Count 6.38 K/uL 10.76 K/uL Red Blood Count 4.52 M/uL 4.41 M/uL Hemoglobin 13.3 g/dL 10.5 g/dL 12.7 g/dL Hematocrit 39.5 % 32.9 % 38.2 % Mean Corpuscular Volume 87.4 fL 86.6 fL Mean Corpuscular Hemoglobin 29.4 pg 28.8 pg Mean Corpuscular Hemoglobin Concent 33.7 g/dl 33.2 g/dl Platelet Count 320 K/uL 278 K/uL Mean Platelet Volume 11.9 fL 11.2 fL Neutrophils (%) (Auto) 46.9 % 93.4 % Lymphocytes (%) (Auto) 35.4 % 5.9 % Monocytes (%) (Auto) 9.6 % 0.4 % Eosinophils (%) (Auto) 7.4 % 0.1 % Basophils (%) (Auto) 0.5 % 0.0 % Neutrophils # (Auto) 3.00 K/uL 10.06 K/uL Lymphocytes # (Auto) 2.26 K/uL 0.63 K/uL Monocytes # (Auto) 0.61 K/uL 0.04 K/uL Eosinophils # (Auto) 0.47 K/uL 0.01 K/uL Basophils # (Auto) 0.03 K/uL 0.00 K/uL RDW Standard Deviation 43.6 fL 42.2 fL RDW Coefficient of Variation 13.6 % 13.1 % Immature Granulocyte % (Auto) 0.2 % 0.2 % Immature Granulocyte # (Auto) 0.01 K/uL 0.02 K/uL Prothrombin Time 10.4 SECONDS 10.8 SECONDS Prothromb Time International Ratio 1.0 1.0 Activated Partial Thromboplast Time 30.3 SECONDS Partial Thromboplastin Ratio 1.2 Sodium Level 136 mmol/L 140 mmol/L Potassium Level 3.6 mmol/L 4.0 mmol/L Chloride Level 99 mmol/L 105 mmol/L Carbon Dioxide Level 31 mmol/L 24 mmol/L Anion Gap 6.0 mmol/L 11.0 mmol/L Blood Urea Nitrogen 9 mg/dl 13 mg/dl Creatinine 0.84 mg/dl 0.74 mg/dl Est Creatinine Clear Calc Drug Dose 102.4 ml/min 116.2 ml/min Estimated GFR () 116.0 135.2 Estimated GFR (Non- 100.1 116.6 BUN/Creatinine Ratio 10.2 17.6 Random Glucose 83 mg/dl 146 mg/dl Calcium Level 9.2 mg/dl 7.9 mg/dl Platelet Func Collagen/Epinephrine 120 SECONDS Assessment and Plan 21 F with post tonsillectomy hemorrhage requiring return to OR and now post OR intubated vent management per intensive care packing inspected in afternoon by Dr Contreras no additional bleeding noted, will remain intubated through the night, no additional events consideration of extubation in am
--- NOTE | 2017-02-03 15:42 | Progress Note ---
Subjective Date of Service: Feb 03, 2017. Subjective Pt evaluation today including: conversation w/ family, physical exam, lab review, review of studies, conversation w/ storage management consultant I spoke with Dr. Ivelisse Kang (Accounts Receivable Administrator) and Dr. Prosper Vargas (Hospitalist) . Additionally, I spoke with Bibi, the patient's nurse for today and the patient's father. The patient was intubated and sedated, so there was no conversation with the patient other than to give her instructions which she followed. I also spoke with the patient's ENT from [facility], Dr. Krystle Abdul. There has been no bleeding since the patient's second surgery which was completed around 2:30 AM this morning. Problem List Medical Problems: (1) Post-tonsillectomy hemorrhage Status: Acute Objective Vital Signs Date Time Temp Pulse Resp B/P (MAP) Pulse Ox O2 Delivery O2 Flow Rate FiO2 02/03/17 15:06 30 02/03/17 14:00 36.6 70 12 111/71 (84) 100 Room Air 02/03/17 12:00 30 02/03/17 12:00 100 Mechanical Ventilator 30 02/03/17 12:00 37.5 73 12 108/69 (82) 100 Room Air 02/03/17 11:20 30 02/03/17 10:00 37.3 84 12 115/72 (86) 99 Room Air 02/03/17 08:00 Mechanical Ventilator 30 02/03/17 08:00 30 02/03/17 08:00 100 Mechanical Ventilator 30 02/03/17 08:00 37.1 87 12 116/77 (90) 99 Room Air 02/03/17 07:32 30 02/03/17 06:00 36.3 85 18 115/71 (86) 99 Room Air 02/03/17 05:00 36.6 89 18 115/75 (88) 100 Room Air 02/03/17 04:52 30 02/03/17 04:00 36.5 93 20 125/85 (98) 100 Room Air 02/03/17 03:45 100 Room Air 30 02/03/17 03:45 30 02/03/17 03:45 36.2 97 18 126/85 (99) 100 Room Air 02/03/17 03:40 36.2 95 18 127/86 (100) 95 Room Air 02/03/17 03:35 36 90 130/90 100 Mechanical Ventilator 30 02/03/17 03:30 90 121/81 100 Mechanical Ventilator 30 02/03/17 03:25 76 113/79 100 Mechanical Ventilator 30 02/03/17 03:20 88 114/79 100 Mechanical Ventilator 30 02/03/17 03:15 101 116/80 100 Mechanical Ventilator 30 02/03/17 03:10 74 128/92 100 Mechanical Ventilator 02/03/17 03:09 40 02/03/17 03:03 36 105/66 (79) 100 Mechanical Ventilator 30 02/03/17 01:15 36.5 141 20 133/91 (105) 96 Room Air 02/03/17 01:00 36.5 141 20 139/113 (122) 96 Room Air 02/03/17 01:00 36.5 107 20 125/73 96 Room Air 02/03/17 00:30 107 20 125/73 96 02/03/17 00:20 111 22 126/77 97 02/03/17 00:15 108 22 131/90 96 02/03/17 00:10 114 20 133/89 99 02/03/17 00:05 123 20 137/91 99 02/03/17 00:01 142 20 142/89 98 02/02/17 23:55 141 26 140/92 96 02/02/17 23:44 147 24 162/111 100 02/02/17 22:37 36.6 104 16 124/80 98 02/02/17 21:53 104 16 124/80 98 Room Air 02/02/17 20:17 98 Room Air 02/02/17 20:14 107 16 125/82 98 Room Air 02/02/17 20:06 101 02/02/17 19:57 116 16 141/107 97 Room Air 02/02/17 19:40 97 Room Air 02/02/17 19:00 36.6 98 18 127/83 97 Room Air I removed the patient's oropharyngeal packing, and the Gelfoam was still in perfect position and there was no old or new blood. The Avitene and Tisseel were placed deep to the Gelfoam, and are assumed to be in good position as well. Laboratory Results Last 24 Hours Test 02/02/17 19:15 02/03/17 01:05 02/03/17 03:40 02/03/17 11:49 White Blood Count 6.38 K/uL 10.76 K/uL Red Blood Count 4.52 M/uL 4.41 M/uL Hemoglobin 13.3 g/dL 10.5 g/dL 12.7 g/dL Hematocrit 39.5 % 32.9 % 38.2 % Mean Corpuscular Volume 87.4 fL 86.6 fL Mean Corpuscular Hemoglobin 29.4 pg 28.8 pg Mean Corpuscular Hemoglobin Concent 33.7 g/dl 33.2 g/dl Platelet Count 320 K/uL 278 K/uL Mean Platelet Volume 11.9 fL 11.2 fL Neutrophils (%) (Auto) 46.9 % 93.4 % Lymphocytes (%) (Auto) 35.4 % 5.9 % Monocytes (%) (Auto) 9.6 % 0.4 % Eosinophils (%) (Auto) 7.4 % 0.1 % Basophils (%) (Auto) 0.5 % 0.0 % Neutrophils # (Auto) 3.00 K/uL 10.06 K/uL Lymphocytes # (Auto) 2.26 K/uL 0.63 K/uL Monocytes # (Auto) 0.61 K/uL 0.04 K/uL Eosinophils # (Auto) 0.47 K/uL 0.01 K/uL Basophils # (Auto) 0.03 K/uL 0.00 K/uL RDW Standard Deviation 43.6 fL 42.2 fL RDW Coefficient of Variation 13.6 % 13.1 % Immature Granulocyte % (Auto) 0.2 % 0.2 % Immature Granulocyte # (Auto) 0.01 K/uL 0.02 K/uL Prothrombin Time 10.4 SECONDS 10.8 SECONDS Prothromb Time International Ratio 1.0 1.0 Activated Partial Thromboplast Time 30.3 SECONDS Partial Thromboplastin Ratio 1.2 Sodium Level 136 mmol/L 140 mmol/L Potassium Level 3.6 mmol/L 4.0 mmol/L Chloride Level 99 mmol/L 105 mmol/L Carbon Dioxide Level 31 mmol/L 24 mmol/L Anion Gap 6.0 mmol/L 11.0 mmol/L Blood Urea Nitrogen 9 mg/dl 13 mg/dl Creatinine 0.84 mg/dl 0.74 mg/dl Est Creatinine Clear Calc Drug Dose 102.4 ml/min 116.2 ml/min Estimated GFR () 116.0 135.2 Estimated GFR (Non- 100.1 116.6 BUN/Creatinine Ratio 10.2 17.6 Random Glucose 83 mg/dl 146 mg/dl Calcium Level 9.2 mg/dl 7.9 mg/dl Platelet Func Collagen/Epinephrine 120 SECONDS Bedside Glucose 111 mg/dl Test 02/03/17 12:09 Fibrinogen 326 mg/dl Assessment and Plan Patient now stable with a Hgb of 12.7 and adequate platelets and fibrinogen. Recommendations for work-up of a clotting disorder are being carried out. These recommendations were provided by Dr. Fong to Dr. Rory Johns, a resident rotating in the Surgical ICU. Now that her oropharyngeal packing has been removed without bleeding, and the Gelfoam, Tisseel and Ativene are in good position, the tentative plan is to leave the patient intubated until 7:15 AM tomorrow. I will return then, and extubate the patient with pull out operator, Dr. Ivelisse Kang. Once she is extubated and without bleeding, it will most likely be best to transfer the patient to [facility] for continued observation.
[2017-02-04] VITALS (12 sets, daily range): BP systolic 93–113; BP diastolic 45–67; PULSE 61–93; TEMP 36.7–37.4; O2SAT 97–100
[2017-02-04] MEDS: PROPOFOL IV EMULSION 10 MG/ML 100 ML VIAL IV PRN ×2 (00:22→05:27)
[2017-02-04] MEDS: SODIUM CHLORIDE 0.9% 1000ML 1,000 ML IV SCH ×2 (02:01→09:10)
[2017-02-04 05:47] LABS: HEMATOCRIT 27.3 % (37-47); MEAN CELL VOLUME 86.4 fL (80-100); MEAN CORPUSCULAR HEMOGLOBIN 27.5 pg (25-34); MEAN CORPUSCULAR HGB CONC 31.9 g/dl (32-36); PLATELET COUNT 203 K/uL (130-400); RED BLOOD COUNT 3.16 M/uL (4.2-5.4); WHITE BLOOD COUNT 7.69 K/uL (4.8-10.8)
[2017-02-04 05:57] LABS: ALT/SGPT 16 U/L (12-78); AST/SGOT 18 U/L (15-37); BLOOD UREA NITROGEN 7 mg/dl (7-18); CALCIUM 7.3 mg/dl (8.5-10.1); CARBON DIOXIDE 28 mmol/L (21-32); CHLORIDE 112 mmol/L (98-107); CREATININE 0.54 mg/dl (0.60-1.20); GLUCOSE 84 mg/dl (70-99); POTASSIUM 3.5 mmol/L (3.5-5.1); SODIUM 145 mmol/L (136-145)
[2017-02-04 05:58] LABS: ALB/GLOB RATIO 0.9 (0.9-2); ALKALINE PHOSPHATASE 39 U/L (45-117); PHOSPHORUS 2.2 mg/dl (2.5-4.9)
[2017-02-04] MEDS ORDERED: RAPID SEQUENCE INDUCTION BAG ONE (07:12)
--- NOTE | 2017-02-04 07:31 | Progress Note ---
Subjective Date of Service: Feb 04, 2017. I spoke with the patient, father of the patient, night nurse (Avril), day nurse (Bibi), Hospitalist (Dr.Thomas Vargas) and the event marketing specialist (Dr. Ivelisse Kang). Patient has had no bleeding or emesis since I removed the oropharyngeal packing yesterday around 3:30 PM. Subjective Pt evaluation today including: conversation w/ patient, conversation w/ family , physical exam, lab review, conversation w/ integration consultant Problem List Medical Problems: (1) Post-tonsillectomy hemorrhage Status: Acute Objective Vital Signs Date Time Temp Pulse Resp B/P (MAP) Pulse Ox O2 Delivery O2 Flow Rate FiO2 02/04/17 06:31 30 02/04/17 06:00 71 12 98/54 (69) 100 Mechanical Ventilator 30 02/04/17 05:08 30 02/04/17 04:00 37.0 64 12 104/54 (71) 100 Mechanical Ventilator 30 02/04/17 04:00 30 02/04/17 04:00 100 Mechanical Ventilator 30 02/04/17 02:00 68 12 96/45 (62) 99 Mechanical Ventilator 30 02/04/17 01:42 30 02/04/17 00:00 36.7 72 12 107/45 (65) 99 Mechanical Ventilator 30 02/04/17 00:00 30 02/04/17 00:00 100 Mechanical Ventilator 30 02/03/17 22:43 30 02/03/17 22:00 78 12 107/52 (70) 100 Mechanical Ventilator 30 02/03/17 20:00 100 Mechanical Ventilator 30 02/03/17 20:00 30 02/03/17 20:00 36.8 72 14 112/68 (83) 100 Mechanical Ventilator 02/03/17 19:07 30 02/03/17 18:00 36.6 72 12 100/55 (70) 99 Room Air 02/03/17 16:00 100 Mechanical Ventilator 30 02/03/17 16:00 30 02/03/17 16:00 36.6 72 12 101/59 (73) 99 Room Air 02/03/17 15:06 30 02/03/17 14:00 36.6 70 12 111/71 (84) 100 Room Air 02/03/17 12:00 30 02/03/17 12:00 100 Mechanical Ventilator 30 02/03/17 12:00 37.5 73 12 108/69 (82) 100 Room Air 02/03/17 11:20 30 02/03/17 10:00 37.3 84 12 115/72 (86) 99 Room Air 02/03/17 08:00 Mechanical Ventilator 30 02/03/17 08:00 30 02/03/17 08:00 100 Mechanical Ventilator 30 02/03/17 08:00 37.1 87 12 116/77 (90) 99 Room Air 02/03/17 07:32 30 I extubated her without difficulty and examined her oropharynx. Her absorbable oropharyngeal packing was still in place. There was no old or new blood. She was breathing without difficulty. Laboratory Results Last 24 Hours Test 02/03/17 11:49 02/03/17 12:09 02/03/17 17:47 02/04/17 05:10 Bedside Glucose 111 mg/dl 87 mg/dl Fibrinogen 326 mg/dl White Blood Count 7.69 K/uL Red Blood Count 3.16 M/uL Hemoglobin 8.7 g/dL Hematocrit 27.3 % Mean Corpuscular Volume 86.4 fL Mean Corpuscular Hemoglobin 27.5 pg Mean Corpuscular Hemoglobin Concent 31.9 g/dl RDW Standard Deviation 44.2 fL RDW Coefficient of Variation 13.8 % Platelet Count 203 K/uL Mean Platelet Volume 11.0 fL Sodium Level 145 mmol/L Potassium Level 3.5 mmol/L Chloride Level 112 mmol/L Carbon Dioxide Level 28 mmol/L Anion Gap 5.0 mmol/L Blood Urea Nitrogen 7 mg/dl Creatinine 0.54 mg/dl Est Creatinine Clear Calc Drug Dose 161.6 ml/min Estimated GFR () > 150.0 Estimated GFR (Non- 135.8 BUN/Creatinine Ratio 13.0 Random Glucose 84 mg/dl Calcium Level 7.3 mg/dl Phosphorus Level 2.2 mg/dl Magnesium Level 2.0 mg/dl Total Bilirubin 0.2 mg/dl Aspartate Amino Transf (AST/SGOT) 18 U/L Alanine Aminotransferase (ALT/SGPT) 16 U/L Alkaline Phosphatase 39 U/L Total Protein 4.9 gm/dl Albumin 2.3 gm/dl Globulin 2.6 gm/dl Albumin/Globulin Ratio 0.9 Assessment and Plan I believe the drop in Hgb is related to equilibration following massive blood loss. She lost at least 1.5 to two liters of blood based upon my estimates. I doubt she has another source of bleeding, but this remains a possibility. As she is hemodynamically stable and extubated, I recommend for transfer to [facility]. I have spoke to the original surgeon, Dr. Krystle Abdul yesterday, and she was agreeable to this plan. However, she doesn't know about the drop in Hgb. I have discussed this situation wtih Drs. Kang and Alicia and they will coordinate transfer. I remain available.
[2017-02-04] MEDS ORDERED: POTASSIUM PHOSPHATE INJ 15 MMOL in SODIUM CHLORIDE 0.9% 250ML 250 ML IV ONE (09:00)
--- NOTE | 2017-02-04 10:04 | Critical Care Progress Note ---
Critical Care Progress Note Date of Service Feb 04, 2017. ICU Day ICU Day Number: [address] Ivelisse Kang Subjective No issues overnight. Patient has been de-escalated to CPAP at approximately 06:30 this morning No acute events overnight Dr. Cleaning at the bedside evaluating and examining the patient Patient successfully extubated to non-rebreather mask; no other acute events Objective Constitutional: Vital signs as above were reviewed. Eyes: Pupils equal, round, and reactive to light. No proptosis. No photophobia. ENT: Mucous membranes are moist. Oropharynx is clear. Examination per Dr. Cleaning. Gelfoam in place, with no evidence of bleeding in the oropharynx Cardiovascular: Heart with a regular rate and rhythm. Pulses are palpable and symmetric in all 4 extremities. No pedal edema appreciated. Respiratory: Lungs clear to auscultation bilaterally. No retractions. No increased work of breathing. Slightly shallow breath sounds, patient is still on light sedation. No crackles or wheezing GI: Abdomen soft, nontender, nondistended. Normal active bowel sounds. No abdominal hernias appreciated. No rebound. No guarding. : No CVA tenderness appreciated. Musculoskeletal: No gross deformities. No bony tenderness. No calf swelling or tenderness. Integumentary: Warm, dry, no rashes appreciated. Neurological: RASS -1, patient follows simple commands. Non-verbal at this time as she was recently extubated Lymph: No cervical lymphadenopathy appreciated. Current SOFA Score SOFA Score Response (Comments) Value Platelets (x10) > 150 0 Bilirubin (mg/dL) < 1.2 0 [place] Coma Score 13 - 14 1 Level of Hypotension No Hypotension 0 Creatinine (mg/dL) < 1.2 0 Total 1 Assessment & Plan (1) Post-tonsillectomy hemorrhage (2) Post tonsillectomy secondary hemorrhage (3) Recurrent streptococcal tonsillitis (4) Acute blood loss anemia NEUROLOGICAL - GCS: 10 Eyes 3; Verbal 1; Motor 6 GCS will be serially monitored as she continues to come off sedation - Sedation: Wean/DC Propofol - RASS currently -1; goal RASS 0 - Pain regimen: Morphine 2 mg q 3 hours CARDIOVASCULAR - BP: Maintaining sBP > 90-100 systolic Goal MAP > 65 - HR 60-70 - IV Fluids: NSS at 125 ml/hr; continue IVF today as patient will remain NPO - No history of cardiovascular disease RESPIRATORY - S/p extubation to venturi mask at 35% FiO2 - Wean to room air - No underlying respiratory co-morbidities GASTROINTESTINAL - Diet: Keep NPO as patient is s/p extubation and possible need for additional surgical intervention - GI Prophylaxis: Protonix 40 mg IV daily while fasting and intubated - Bowel regimen: Monitor for BM - Consideration was given for GI bleed in light of findings of blood in gastric aspirates. However, in the absence of associated bowel movements, our suspicion is that gastric blood was likely swallowed from upper airways. RENAL//ENDOCRINE - Fluid balance cumulative positive + 3.1 L - Cr: 0.54 - Electrolytes: Mild hypophosphatemia at 2.2 --> 15 mmol KPhos Mild Hypocalcemia --> check ical with AM labs - IV Fluids: NSS at 125 ml/hr - BSG: POC glucose q6h while fasting HEMATOLOGY Acute Blood Loss Anemia 2/2 Post-tonsillectomy hemorrhage - Bleeding site is currently pack - Oral cavity packing removed yesterday with no evidence of bleeding - Dr. Cleaning's examination did not reveal in blood in the oropharynx with Gelfoam in place - Acute Hb drop this morning ot 8.7 - Repeat CBC to exclude spurious measure - 2 units transferred yesterday; goal to transfuse if Hb < 7.0 is reasonable. - Coag studies pending Von Willebrand's Panel and Multimer; Factor 9; Factor 10 levels; Fibrinogen level - 1 g tranexamic acid given to patient INFECTIOUS DISEASE - Afebrile, without leukocytosis of evidence of active infection - No indication for post-tonsillectomy antibiotics at this time. DVT PROPHYLAXIS - SCD - Continue to hold pharmacological prophylaxis LINES/IV ACCESS - Right AC 20 G - Left wrist 20 G CODE STATUS - Full Code DISPOSITION - Patient anticipated to stay in the ICU today; possible discharge tomorrow - Will have nurse ambulate at beside and if unable to, will order PT today Resident Physician Supervision Note/Can Inspector I personally interviewed and examined the patient. I have been in her room several times this morning and had the nursing staff decrease her sedation and place her on CPAP 12/25 around 0700 in anticipation of extubation. Lungs coarse, heart regular, she followed commands. The ETT was pulled by Dr. Contreras after his examination. Dr. Johns and I were both at the bedside at that time. Her care was discussed in detail on multidisciplinary rounds today and I have discussed it with Dr. Johns and Dr. Vargas. She remains NPO s/p extubation and we are monitoring for bleeding. She has acute anemia of blood loss - no BM' s, no N/V, no abdominal pain or back pain. I also suspect that her anemia is secondary to blood loss in the posterior pharynx and that we are finally seeing equilibration. She is on protonix BID and this can be changed to daily for now. Labs for VWB disease are still pending. F/U H/H at 1300. Father updated in detail at the bedside. Consideration is being made for transfer to [facility] and Dr. Rubio has been communicating with Dr. Abdul there. Documented By: Ivelisse Kang Consults & Procedures Consultants: ENT Procedures: Surgical control of post-tonsillectomy bleeding 02/02/2017 Re-exploration of surgical control of post-tonsillectomy bleeding 02/03/2017 Data Medications: Current Inpatient Medications Medications (Trade) Dose Ordered Sig/Keith Route Start Time Stop Time Status Last Admin Dose Admin Morphine Sulfate (MoRPHine SULFATE INJ) 2 mg Q3H PRN IV 02/02/17 23:00 02/16/17 22:59 02/03/17 19:35 2 MG Sodium Chloride 1,000 ml @ 125 mls/hr Q8H IV 02/03/17 00:30 03/05/17 00:29 02/04/17 09:10 125 MLS/HR Propofol (Diprivan Iv Emulsion 100ml Vial) 1 dose UD PRN IV 02/03/17 03:30 02/06/17 03:29 02/04/17 05:27 1 DOSE Pantoprazole Sodium 40 mg/ Syringe 10 ml @ 5 mls/min DAILY@11 IV 02/03/17 11:00 03/05/17 10:59 02/03/17 11:02 5 MLS/MIN Potassium Phosphate 15 mmol/ Sodium Chloride 255 ml @ 100 mls/hr TODAY@0900 ONCE IV 02/04/17 09:00 02/04/17 11:32 02/04/17 09:06 100 MLS/HR Vital Signs: Date Time Temp Pulse Resp B/P (MAP) Pulse Ox O2 Delivery O2 Flow Rate FiO2 02/04/17 08:00 37.3 67 14 113/67 (82) 100 Mask 35 02/04/17 08:00 100 Mask 35 02/04/17 06:31 30 02/04/17 06:00 71 12 98/54 (69) 100 Mechanical Ventilator 30 02/04/17 05:08 30 02/04/17 04:00 37.0 64 12 104/54 (71) 100 Mechanical Ventilator 30 02/04/17 04:00 30 02/04/17 04:00 100 Mechanical Ventilator 30 02/04/17 02:00 68 12 96/45 (62) 99 Mechanical Ventilator 30 02/04/17 01:42 30 02/04/17 00:00 36.7 72 12 107/45 (65) 99 Mechanical Ventilator 30 02/04/17 00:00 30 02/04/17 00:00 100 Mechanical Ventilator 30 02/03/17 22:43 30 02/03/17 22:00 78 12 107/52 (70) 100 Mechanical Ventilator 30 02/03/17 20:00 100 Mechanical Ventilator 30 02/03/17 20:00 30 02/03/17 20:00 36.8 72 14 112/68 (83) 100 Mechanical Ventilator 02/03/17 19:07 30 02/03/17 18:00 36.6 72 12 100/55 (70) 99 Room Air 02/03/17 16:00 100 Mechanical Ventilator 30 02/03/17 16:00 30 02/03/17 16:00 36.6 72 12 101/59 (73) 99 Room Air 02/03/17 15:06 30 02/03/17 14:00 36.6 70 12 111/71 (84) 100 Room Air 02/03/17 12:00 30 02/03/17 12:00 100 Mechanical Ventilator 30 02/03/17 12:00 37.5 73 12 108/69 (82) 100 Room Air 02/03/17 11:20 30 02/03/17 10:00 37.3 84 12 115/72 (86) 99 Room Air Laboratory Results: Last 24 Hours Test 02/03/17 11:49 02/03/17 12:09 02/03/17 17:47 02/04/17 05:10 Bedside Glucose 111 mg/dl 87 mg/dl Fibrinogen 326 mg/dl White Blood Count 7.69 K/uL Red Blood Count 3.16 M/uL Hemoglobin 8.7 g/dL Hematocrit 27.3 % Mean Corpuscular Volume 86.4 fL Mean Corpuscular Hemoglobin 27.5 pg Mean Corpuscular Hemoglobin Concent 31.9 g/dl RDW Standard Deviation 44.2 fL RDW Coefficient of Variation 13.8 % Platelet Count 203 K/uL Mean Platelet Volume 11.0 fL Sodium Level 145 mmol/L Potassium Level 3.5 mmol/L Chloride Level 112 mmol/L Carbon Dioxide Level 28 mmol/L Anion Gap 5.0 mmol/L Blood Urea Nitrogen 7 mg/dl Creatinine 0.54 mg/dl Est Creatinine Clear Calc Drug Dose 161.6 ml/min Estimated GFR () > 150.0 Estimated GFR (Non- 135.8 BUN/Creatinine Ratio 13.0 Random Glucose 84 mg/dl Calcium Level 7.3 mg/dl Phosphorus Level 2.2 mg/dl Magnesium Level 2.0 mg/dl Total Bilirubin 0.2 mg/dl Aspartate Amino Transf (AST/SGOT) 18 U/L Alanine Aminotransferase (ALT/SGPT) 16 U/L Alkaline Phosphatase 39 U/L Total Protein 4.9 gm/dl Albumin 2.3 gm/dl Globulin 2.6 gm/dl Albumin/Globulin Ratio 0.9
[2017-02-04] MEDS ORDERED: ACETAMINOPHEN IV 100 ML IV ONE (11:30)
[2017-02-04] MEDS: PANTOprazole INJ 40 MG in SYRINGE 0 ML IV SCH (12:24)
[2017-02-04 13:06] LABS: HEMATOCRIT 26.9 % (37-47)
--- NOTE | 2017-02-04 14:35 | Progress Note ---
Subjective Date of Service: Feb 04, 2017. Subjective pt was extubatd this am, and speaks in hoarse voice, no other compaints except for sore throat, father at bedside and updated I personally discussed plan of care with Korin Contreras and Jorge Luis Problem List Medical Problems: (1) Post-tonsillectomy hemorrhage Status: Acute Review of Systems Constitutional: + weakness, + fatigue, No fever, No chills ENT: + sore throat, + trouble swallowing Respiratory: No cough, No shortness of breath, No dyspnea on exertion Cardiac: No chest pain, No PND, No edema Abdomen: No pain, No nausea, No vomiting, No diarrhea Musculoskeletal: No joint pain, No muscle pain Female : No dysuria, No urinary frequency, No hematuria, No incontinence Neurologic: No memory loss, No paralysis, No weakness Psychiatric: No depression symptoms, No anhedonism, No anxiety Objective Vital Signs Date Time Temp Pulse Resp B/P (MAP) Pulse Ox O2 Delivery O2 Flow Rate FiO2 02/04/17 12:00 37.1 61 16 102/57 (72) 100 Room Air 02/04/17 12:00 97 Room Air 02/04/17 10:00 81 14 105/53 (70) 98 Room Air 02/04/17 08:00 37.3 67 14 113/67 (82) 100 Mask 35 02/04/17 08:00 Mask 35 02/04/17 08:00 100 Mask 35 02/04/17 06:31 30 02/04/17 06:00 71 12 98/54 (69) 100 Mechanical Ventilator 30 02/04/17 05:08 30 02/04/17 04:00 37.0 64 12 104/54 (71) 100 Mechanical Ventilator 30 02/04/17 04:00 30 02/04/17 04:00 100 Mechanical Ventilator 30 02/04/17 02:00 68 12 96/45 (62) 99 Mechanical Ventilator 30 02/04/17 01:42 30 02/04/17 00:00 36.7 72 12 107/45 (65) 99 Mechanical Ventilator 30 02/04/17 00:00 30 02/04/17 00:00 100 Mechanical Ventilator 30 02/03/17 22:43 30 02/03/17 22:00 78 12 107/52 (70) 100 Mechanical Ventilator 30 02/03/17 20:00 100 Mechanical Ventilator 30 02/03/17 20:00 30 02/03/17 20:00 36.8 72 14 112/68 (83) 100 Mechanical Ventilator 02/03/17 19:07 30 02/03/17 18:00 36.6 72 12 100/55 (70) 99 Room Air 02/03/17 16:00 100 Mechanical Ventilator 30 02/03/17 16:00 30 02/03/17 16:00 36.6 72 12 101/59 (73) 99 Room Air 02/03/17 15:06 30 Physical Exam General Appearance: WD/WN, + mild distress Eyes: PERRL, EOMI Neck: supple, no JVD Respiratory/Chest: chest non-tender, lungs clear, normal breath sounds Cardiovascular: regular rate, rhythm, no murmur Abdomen: normal bowel sounds, non tender, soft Extremities: normal range of motion, non-tender, no pedal edema Neurologic/Psychiatric: alert, oriented x 3 Skin: normal color, warm/dry, no rash Laboratory Results Last 24 Hours Test 02/03/17 17:47 02/04/17 05:10 02/04/17 12:50 Bedside Glucose 87 mg/dl White Blood Count 7.69 K/uL Red Blood Count 3.16 M/uL Hemoglobin 8.7 g/dL 9.3 g/dL Hematocrit 27.3 % 26.9 % Mean Corpuscular Volume 86.4 fL Mean Corpuscular Hemoglobin 27.5 pg Mean Corpuscular Hemoglobin Concent 31.9 g/dl RDW Standard Deviation 44.2 fL RDW Coefficient of Variation 13.8 % Platelet Count 203 K/uL Mean Platelet Volume 11.0 fL Sodium Level 145 mmol/L Potassium Level 3.5 mmol/L Chloride Level 112 mmol/L Carbon Dioxide Level 28 mmol/L Anion Gap 5.0 mmol/L Blood Urea Nitrogen 7 mg/dl Creatinine 0.54 mg/dl Est Creatinine Clear Calc Drug Dose 161.6 ml/min Estimated GFR () > 150.0 Estimated GFR (Non- 135.8 BUN/Creatinine Ratio 13.0 Random Glucose 84 mg/dl Calcium Level 7.3 mg/dl Phosphorus Level 2.2 mg/dl Magnesium Level 2.0 mg/dl Total Bilirubin 0.2 mg/dl Aspartate Amino Transf (AST/SGOT) 18 U/L Alanine Aminotransferase (ALT/SGPT) 16 U/L Alkaline Phosphatase 39 U/L Total Protein 4.9 gm/dl Albumin 2.3 gm/dl Globulin 2.6 gm/dl Albumin/Globulin Ratio 0.9 Assessment and Plan 21 F with post tonsillectomy hemorrhage requiring return to OR and required intubation for airway management. Was successfully extubated 02/04 [address] br Dr Contreras and feels her airway is stable. I did discuss this with ENT at [facility] [place],. Dr Gutierres, she wants an update phone call in am, may consider discharge to see her in clinic 02/06. will follow acute blood loss anemia, recheck afternoon 02/04
[2017-02-04] MEDS: SODIUM CHLORIDE 0.45% 1000ML 1,000 ML IV SCH (15:15)
[2017-02-05] VITALS: BP 105/62; PULSE 62; TEMP 37.3; O2SAT 98
[2017-02-05 02:00] VITALS: BP 121/75; PULSE 57; O2SAT 97
[2017-02-05] MEDS: SODIUM CHLORIDE 0.45% 1000ML 1,000 ML IV SCH (02:36)
[2017-02-05 04:00] VITALS: BP 4/61; PULSE 53; TEMP 37; O2SAT 98
[2017-02-05 05:58] LABS: MEAN CELL VOLUME 88.2 fL (80-100); MEAN CORPUSCULAR HEMOGLOBIN 27.6 pg (25-34); MEAN CORPUSCULAR HGB CONC 31.3 g/dl (32-36); MEAN PLATELET VOLUME 11.5 fL (7.4-10.4); PLATELET COUNT 224 K/uL (130-400); WHITE BLOOD COUNT 6.42 K/uL (4.8-10.8)
[2017-02-05 06:36] LABS: BLOOD UREA NITROGEN 4 mg/dl (7-18); BUN/CREATININE RATIO 9.4 (10-20); CARBON DIOXIDE 22 mmol/L (21-32); CHLORIDE 107 mmol/L (98-107); CREATININE 0.47 mg/dl (0.60-1.20); GLUCOSE 63 mg/dl (70-99); POTASSIUM 3.7 mmol/L (3.5-5.1); SODIUM 141 mmol/L (136-145)
[2017-02-05] MEDS ORDERED: DEXAMETHASONE INJ 4 MG in SYRINGE 0 ML IV STA (07:39)
--- NOTE | 2017-02-05 07:39 | Discharge Instructions ---
Discharge Instructions Date of Service Feb 05, 2017. Admission Reason for Admission: Post Tonsillectomy Secondary Hemorrhage Discharge Discharge Diagnosis / Problem: acute blood loss anemia, pharyngeal packing Discharge Goals Goal(s): Diagnostic testing, Therapeutic intervention Activity Recommendations Activity Limitations: as noted below Lifting Limitations: gradually increase as tolerated . Instructions / Follow-Up Instructions / Follow-Up Please follow up with Dr Childers 02/05 at noon in her clinic on [address] in a [facility] Diet Patient's current hospital diet: Discharge Diet Recommended Diet: Clear Liquid Diet Procedures Procedures Performed: Re-exploration and Control of Post-Tonsillectomy Hemorrhage Pending Studies Studies pending at discharge: no Medical Emergencies . Who to Call and When: Medical Emergencies: If at any time you feel your situation is an emergency, please call 911 immediately. . Non-Emergent Contact Non-Emergency issues call your: Surgeon (Dr Abdul) Call Non-Emergent contact if: temperature is above 101, your pain is unusual for you . . "Provider Documentation" section prepared by Prosper Vargas. . VTE Core Measure Inpt VTE Proph given/why not?: SCD's
[2017-02-05 07:47] VITALS: BP 4/61; PULSE 53; TEMP 37; O2SAT 98
[2017-02-05] MEDS ORDERED: OXYC-57 PO (08:03)
[2017-02-05] MEDS: MoRPHine SULFATE 2 MG/ML CARP IV PRN (08:22)
--- NOTE | 2017-02-05 16:42 | Discharge Summary ---
Discharge Summary Date of Service Feb 05, 2017. Discharge Summary Admission Date: Feb 02, 2017 at 22:59 Discharge Date: Feb 05, 2017 Discharge Disposition: Home Principal Diagnosis: acute hemorrhagic anemia, s/p previous tonsillectomy Consultations: dr Contreras took pt emergently to OR x2 Medication Reconciliation New Medications: Oxycodone/Acetaminophen 5MG/325MG (Percocet 5MG/325MG) Tab 2 TABLETS PO Q4H PRN for Pain, #20 TAB Continued Medications: Control Pills ( Control Pills) Tab 1 TAB PO HS, TAB Discharge Exam Review of Systems: Constitutional: No fever, No chills, No sweats Respiratory: No cough, No wheezing Cardiovascular: No chest pain, No orthopnea, No PND Physical Exam: General Appearance: WD/WN, + mild distress Neck: supple, no JVD Respiratory/Chest: chest non-tender, lungs clear, normal breath sounds Cardiovascular: regular rate, rhythm, no murmur Hospital Course 21 F with post tonsillectomy hemorrhage requiring return to OR and required intubation for airway management. Was successfully extubated 02/04 [address] br Dr Contreras and feels her airway is stable. remained stable overnight with no additional bleeding, hgb also remains stable I did discuss this with ENT at [facility] [place],. Dr Gutierres both in the afternoon of the and the morning of the , , will see her in clinic 02/05 at noon. anemia has been stable and pt instructed to have family proceed directly to clinic from here Total Time Spent: Greater than 30 minutes This includes examination of the patient, discharge planning, medication reconciliation, and communication with other providers. Discharge Instructions Please refer to the electronic Patient Visit Report (Discharge Instructions) for additional information.
[2017-02-09 19:01] LABS: APTT 28 sec (22-34); COAG FACTOR 10 ACTIV**TC 359X 115 % (70-150); COAG FACTOR 9 ACTIVITY**TC352X 118 % (60-160); F8 ACT 83 % (50-180); RISTOCETIN COFACTOR** 4459X 87 % (42-200)
== END 2017-02-05 08:49 | disposition home or self-care (01) | DRG 908 ==
LOC: C.EDB 18:52 → C.MSICU 22:59 → UNDOADMIN 23:38 → C.MSICU 23:38
PROVIDERS: ADMIT Family Medicine; ATTEND Internal Medicine
PROC: 0D968ZZ Drainage of Stomach, Via Natural or Artificial Opening Endoscopic (ICD-10-PCS; principal; 2017-02-02 22:00)
PROC: 0W33XZZ Control Bleeding in Oral Cavity and Throat, External Approach (ICD-10-PCS; principal; 2017-02-02 22:00)
DX: J95.830 Postprocedural hemorrhage of a respiratory system organ or structure following a respiratory system procedure (principal); D62 Acute posthemorrhagic anemia; Z79.3 Long term (current) use of hormonal contraceptives; Z98.890 Other specified postprocedural states